=== PATIENT | female | born 1985 | race Hispanic/Latino ===

== ENCOUNTER 2020-02-22 03:38 | Emergency (ER) | payer MEDICAID ==
[2020-02-22] MEDS ORDERED: DiphenhydrAMINE HCL 50 MG/ML VIAL ONE (04:19)
[2020-02-22] MEDS ORDERED: METOCLOPRAMIDE 10 MG/2 ML VIAL ONE (04:19)
[2020-02-22] MEDS ORDERED: SODIUM CHLORIDE 0.9% 1000ML 2,000 ML IV ONE (04:20)
[2020-02-22] MEDS ORDERED: ONDANSETRON HCL 4 MG/2 ML VIAL ONE (04:20)
[2020-02-22 04:49] LABS: BASOPHILS % (AUTO) 0.1 % (0.0-5.0); EOSINOPHILS % (AUTO) 1.9 % (0.0-8.0); HEMATOCRIT 33.9 % (36-48); LYMPHOCYTES % (AUTO) 16.9 % (21.0-51.0); MEAN CORPUSCULAR HEMOGLOBIN 27.3 pg (27.0-33.0); MEAN CORPUSCULAR HGB CONC 33.3 g/dL (32.0-36.0); MEAN CORPUSCULAR VOLUME 81.9 fL (79-99); MONOCYTES % (AUTO) 7.5 % (3.0-13.0); NEUTROPHILS % (AUTO) 73.3 % (40.0-77.0); PLATELET COUNT (AUTO) 289 K/uL (130-400); RED BLOOD CELL COUNT(AUTO) 4.14 MIL/uL (4.00-5.50); RED CELL DISTRIBUTION WIDTH 17.3 % (11.0-15.5); WHITE BLOOD COUNT (AUTO) 9.7 K/uL (4.8-10.8)
[2020-02-22 04:57] LABS: CREATININE 0.5 mg/dL (0.5-1.5); POTASSIUM 3.2 mmol/L (3.5-5.1)
== END 2020-02-22 05:54 | disposition home or self-care (01) ==
LOC: EDH 03:38
DX: O21.0 Mild hyperemesis gravidarum (principal); O26.891 Other specified pregnancy related conditions, first trimester; E86.9 Volume depletion, unspecified; Z3A.11 11 weeks gestation of pregnancy
CPT/HCPCS: 36415; 80048; 85025; 96361; 96374; 96375; 99284; J1200; J2405; J2765; J7030

== ENCOUNTER 2020-09-02 12:00 | Inpatient (IN) | payer MEDICAID ==
[~2020-09-02] VITALS: Ht 154.9 cm; Wt 73.5 kg
[2020-09-04] VITALS (17 sets, daily range): BP systolic 93–114; BP diastolic 42–67
[2020-09-04] MEDS ORDERED: LACTATED RINGERS 1000ML 1,000 ML IV SCH (06:30)
[2020-09-04] MEDS ORDERED: CALDOLOR 800MG+NS 250ML 250 ML IV PRN (06:30)
[2020-09-04] MEDS ORDERED: CEFAZOLIN SODIUM 1 GM VIAL IVP PRN (06:30)
[2020-09-04] MEDS ORDERED: DURAMORPH PF1 MG/ML 10ML AMP IV ONE (07:00)
[2020-09-04] MEDS ORDERED: OXYTOCIN 10 USP UNITS/ML ONE (07:01)
[2020-09-04] MEDS ORDERED: ONDANSETRON HCL 4 MG/2 ML VIAL ONE (07:02)
[2020-09-04] MEDS ORDERED: SUCCINYLCHOLINE CHLORIDE 20 MG/ML 10 ML VIAL ONE (07:04)
[2020-09-04 07:06] LABS: HEMATOCRIT 29.1 % (36-48); MEAN CORPUSCULAR HGB CONC 29.2 g/dL (32.0-36.0); MEAN CORPUSCULAR VOLUME 78.9 fL (79-99); PLATELET COUNT (AUTO) 192 K/uL (130-400); RED BLOOD CELL COUNT(AUTO) 3.69 MIL/uL (4.00-5.50); RED CELL DISTRIBUTION WIDTH 17.1 % (11.0-15.5); WHITE BLOOD COUNT (AUTO) 7.4 K/uL (4.8-10.8)
[2020-09-04] MEDS ORDERED: PROPOFOL 10 MG/ML 20ML VIAL IV ONE (07:10)
[2020-09-04 07:19] LABS: BILIRUBIN,URINE Negative (NEGATIVE); COLOR,URINE Yellow (YELLOW); GLUCOSE, URINE (UA) Negative (NEGATIVE); KETONES,URINE Negative (NEGATIVE); LEUKOCYTE ESTERASE ,URINE Large (NEGATIVE); NITRATE,URINE Negative (NEGATIVE); OCCULT BLOOD,URINE Negative (NEGATIVE); PH,URINE 6.5 (5.0-8.0); PROTEIN,URINE Negative (NEGATIVE); UROBILINOGEN,URINE 0.2 mg/dL (0.2-1.0)
[2020-09-04 07:20] LABS: APPEARANCE,URINE SLIGHTLY CLOUDY (CLEAR)
[2020-09-04 07:27] LABS: AMPHET/METH SCREEN,URINE NEGATIVE (NEGATIVE); BARBITURATE SCREEN, URINE NEGATIVE (NEGATIVE); BENZODIAZEPINES SCREEN,URINE NEGATIVE (NEGATIVE); CANNABINOID SCREEN,URINE NEGATIVE (NEGATIVE); COCAINE SCREEN,URINE NEGATIVE (NEGATIVE); OPIATE SCREEN,URINE NEGATIVE (NEGATIVE); PHENCYCLIDINE SCREEN,URINE NEGATIVE (NEGATIVE)
[2020-09-04 07:29] LABS: BACTERIA,URINE Few /HPF (None Seen)
[2020-09-04] MEDS ORDERED: CEFAZOLIN SODIUM 1 GM VIAL IVP ONE (08:45)
[2020-09-04] MEDS ORDERED: EPHEDRINE SULFATE 50 MG/ML AMPULE ONE (08:56)
[2020-09-04] MEDS ORDERED: MIDAZOLAM HCL 1 MG/ML 2ML VIAL ONE (09:15)
[2020-09-04] MEDS ORDERED: PROMETHAZINE HCL 25 MG/ML 1ML AMPULE IM PRN (09:45)
[2020-09-04] MEDS ORDERED: MEPERIDINE-PF 75 MG/ML SYG IM PRN (09:45)
[2020-09-04] MEDS ORDERED: SODIUM CHLORIDE 0.9% 10 ML VIAL IVP PRN (09:45)
[2020-09-04] MEDS: OXYTOCIN-LR 20 UNITS/1000 ML 1,000 ML IV PRN ×2 (11:18→13:31)
[2020-09-04] MEDS ORDERED: PEDI18TA2 PO (11:34)
[2020-09-04] MEDS ORDERED: MORPHINE SULFATE 2 MG/ML 1ML SYG IVP PRN (12:12)
[2020-09-04] MEDS: CALDOLOR 800MG+NS 250ML 250 ML IV SCH (17:56)
[2020-09-04] MEDS: DEXTROSE 5 %-0.45 % NACL 1,000 ML IV PRN (17:58)
[2020-09-04] MEDS ORDERED: ONDANSETRON HCL 4 MG/2 ML VIAL IVP PRN (21:00)
[2020-09-04] MEDS ORDERED: ACETAMINOPHEN-CODEINE 300/30MG TAB PO PRN (21:00)
[2020-09-04] MEDS ORDERED: DiphenhydrAMINE HCL 50 MG/ML VIAL IM PRN (21:00)
[2020-09-05] MEDS: CALDOLOR 800MG+NS 250ML 250 ML IV SCH (01:47)
[2020-09-05] MEDS: DEXTROSE 5 %-0.45 % NACL 1,000 ML IV PRN (01:49)
[2020-09-05 03:47] VITALS: BP 102/52
[2020-09-05 03:49] VITALS: BP 112/65
[2020-09-05 05:40] LABS: HEMATOCRIT 22.5 % (36-48); MEAN CORPUSCULAR HEMOGLOBIN 23.6 pg (27.0-33.0); MEAN CORPUSCULAR HGB CONC 29.8 g/dL (32.0-36.0); MEAN CORPUSCULAR VOLUME 79.2 fL (79-99); RED BLOOD CELL COUNT(AUTO) 2.84 MIL/uL (4.00-5.50); RED CELL DISTRIBUTION WIDTH 16.8 % (11.0-15.5); WHITE BLOOD COUNT (AUTO) 9.6 K/uL (4.8-10.8)
[2020-09-05 07:10] VITALS: BP 108/60
[2020-09-05] MEDS ORDERED: ACETAMINOPHEN-CODEINE 300/30MG TAB PO PRN ×2 (09:15)
[2020-09-05] MEDS ORDERED: LANOLIN 30GM OINTMENT TP PRN ×2 (09:15)
[2020-09-05] MEDS ORDERED: MEASLES/MUMPS/RUBELLA VACCINE, LIVE 0.5 ML/VIAL SQ SCH (09:15)
[2020-09-05] MEDS ORDERED: DIPH,PERTUSS(ACELL),TET VAC/PF 0.5 ML VIAL IM SCH (09:15)
[2020-09-05] MEDS ORDERED: IBUPROFEN 600 MG TABLET PO PRN (09:15)
[2020-09-05] MEDS ORDERED: BISACODYL 10 MG SUPP.RECT RC PRN ×2 (09:15)
[2020-09-05] MEDS ORDERED: HYDROCODONE/ACETAMINOPHEN 5/325 MG TAB PO PRN ×2 (09:15)
[2020-09-05] MEDS ORDERED: IBUPROFEN 800 MG TAB PO SCH ×2 (09:15)
[2020-09-05] MEDS ORDERED: DIPHENHYDRAMINE HCL 25 MG CAPSULE PO PRN (09:15)
[2020-09-05] MEDS ORDERED: SIMETHICONE 80 MG TAB.CHEW PO PRN (09:15)
[2020-09-05] MEDS ORDERED: ACETAMINOPHEN EXTRA STRENGTH 500 MG TABLET PO PRN ×2 (09:15)
[2020-09-05] MEDS ORDERED: DOCUSATE SODIUM 100 MG CAP PO SCH ×2 (09:30→21:00)
[2020-09-05] MEDS: SIMETHICONE 80 MG TAB.CHEW PO PRN ×2 (10:12→14:38)
[2020-09-05 10:15] LABS: HEPATITIS Bs ANTIGEN SCREEN P Negative (Negative)
[2020-09-05] MEDS: IBUPROFEN 800 MG TAB PO SCH ×2 (10:16→16:55)
[2020-09-05 11:29] VITALS: BP 109/62
[2020-09-05 16:18] VITALS: BP 125/68
[2020-09-06] MEDS ORDERED: LIDOCAINE 5% TOPICAL PATCH TP SCH (09:00)
== END 2020-09-05 17:35 | disposition home or self-care (01) | DRG 540 ==
LOC: LDH 09-04 05:59 → WSH 09-04 11:00
PROVIDERS: ADMIT Obstetrics & Gynecology; ATTEND Obstetrics & Gynecology
PROC: 0UB70ZZ Excision of Bilateral Fallopian Tubes, Open Approach (ICD-10-PCS; 2020-09-04)
PROC: 10D00Z1 Extraction of Products of Conception, Low, Open Approach (ICD-10-PCS; principal; 2020-09-04 07:30)
DX: O34.211 Maternal care for low transverse scar from previous cesarean delivery (principal); O99.02 Anemia complicating childbirth; Z20.822 Contact with and (suspected) exposure to COVID-19; Z3A.39 39 weeks gestation of pregnancy; Z37.0 Single live birth; Z30.2 Encounter for sterilization
CPT/HCPCS: 36415; 59510; 80305; 81001; 85027; 86592; 86701; 86850; 86900; 86901; 87088; 87340; 87390; A4344; G0378; J0330; J0690; J1741; J2175; J2250; J2274; J2405; J2550; J2590; J2704; J3490; J7120; U0003